=== PATIENT | male | born 1980 | race Caucasian/White ===

== ENCOUNTER 2019-09-04 16:53 | Outpatient (RCR) | payer BC, SELFPAY ==
--- NOTE | 2019-09-04 18:01 | PTOPEVAL ---
Thank you for referring this patient to [facility]. Please review, sign, date and return this plan of care [facility]. I agree with and certify that the following plan of care is medically necessary. Referring Physician Date Admitting Provider: Attending Provider: PHYSICIAN NOT ON STAFF Referring Provider: *PT Outpatient Evaluation Start: 09/04/19 17:09 Freq: Status: Active Protocol: Document 09/04/19 17:10 Reta (Rec: 09/04/19 17:56 [id number]) Therapy Assessment Status Assessment Status Assessment Status Evaluation Outpatient Past Medical History Past Medical History Reason Unable to Obtain see patient intake form Evaluation Information Problem Diagnosis R SLAP Tear Onset 08/28/19 Subjective Information patient reports he has been Query Text:As Reported By Patient/ having pain in the R shoulder Family for about 1.5 years. he reports no specific injury, but relates his pain to playing recreational softball. he reports he has difficulty with overhead activities. 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 he reports he has recently had an injection to the R shoulder (today). he reports he does onot notice mouch difference as of this afternoon. he reports increase as well with throwing. Prior Level of Function Comments Additional Prior Level of Function prior to 1.5 years ago, no Comments issues with the R shoulder. he does have a history of a shoulder seperation. Pain Assessment Timing of Pain Assessment Timing of Pain Assessment Assessment Pain Scale Pain Scale Used Numeric (1 - 10) Self Report Pain Assessment Right Shoulder(s) Reported Pain Level 1 Pain Description Aching,Soreness Current Pain Intensity 1 Lowest Pain Intensity 1 Greatest Pain Intensity 7 Pain Aggravating Factors Lifting,Other Pain Aggravating Factors Other Pain Aggravating Factors overhead activities Pain Score Pain Score 1: Self Report Upper Extremity Range of Motion Scapular/ Shoulder Range of Motion Right Shoulder Flexion - Active 160 Shoulder Medial Rotation - Active 50 Shoulder Medial Rotation - Active reach to the lower thoracic Query
== END 2019-10-04 15:51 | disposition home or self-care (01) ==
LOC: CHSPT 16:53
PROVIDERS: PCP Internal Medicine
DX: M25.511 Pain in right shoulder (principal)
CPT/HCPCS: 97014; 97110; 97161; G0283